=== PATIENT | female | born 1970 | race Hispanic/Latino ===

== ENCOUNTER 2022-06-09 05:48 | Emergency (ER) | payer OTHER ==
--- OUTSIDE RECORDS SUMMARY | 2022-06-09 05:53 | XMS REPORT | Continuity of Care Document ---
:1970 Author Organization [facility] t Address [address] [place] [address] Care Team Providers Name Role Phone Ciarra JEAN, Marilyn Primary Care Physician YANELI DOVER Attending Clinician Unavailable Hawkins_M Attending Clinician Unavailable May Arana MD Attending Clinician Karen Olea MA Attending Clinician Unavailable Zuniga_F Attending Clinician Unavailable matnursing Attending Clinician Unavailable Zuniga_S Attending Clinician Unavailable White_M Attending Clinician Unavailable Shield Attending Clinician Unavailable Ayeni_Ibitoye_Olubu Attending Clinician Unavailable RENALDO FONSECA Attending Clinician Unavailable Hawkins_M Admitting Clinician Unavailable Zuniga_F Admitting Clinician Unavailable matnursing Admitting Clinician Unavailable Zuniga_S Admitting Clinician Unavailable White_M Admitting Clinician Unavailable Shield Admitting Clinician Unavailable Ayeni_Ibitoye_Olubu Admitting Clinician Unavailable Payers Payer Name Policy Type Policy Number Effective Date Expiration Date Marylou LEVINE SEYMOUR [id number] 2021 HEALTH PLAN 00:00:00 BLAIR Landa [id number] ABNER FROM [facility]) ABNER Landa [id number] [facility] 3 (HMO) [place] APOLLO [id number] 2021 2021 ADVANTAGE (HMO) 00:00:00 00:00:00 Problems Condition Condition Condition Status Onset Resolution Last Treating Co mments Source Name Details Category Date Date Treatment Clinician Date Numbness Numbness Disease Active [facility] 7-06 [facility] 00:00: 00 Pain in Pain in Disease Active [facility] both feet both feet 04-03 Heal th 00:00: 00 Seasonal Seasonal Problem Active 2020-09 [place] allergy Allergy 0-21 da 00:00: Medical 00 Group COVID-19 Covid-19 Problem Active 2020-09 [place] 0-21 da 00:00: Medical 00 Group 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 Family History Family Member Diagnosis Comments Start Date Stop Date Source Maternal aunt [facility] Social History Social Habit Start Date Stop Date Quantity Comments Source History SDOH [facility] Drinks History SDAR [facility] Exposure to 2022-02-26 2022-03-08 Not sure [facility] SARS-CoV-2 00:00:00 14:35:00 (event) Tobacco use and 2022-01-23 2022-01-23 Smokeless tobacco [facility] exposure 00:00:00 00:00:00 non-user Alcohol intake 2020-03-21 2020-03-21 [facility] 00:[facility] 00:00:00 non-drinker Hospital (finding) History SDAR 2020-03-21 2020-03-21 1 [facility] Frequency 00:00:00 00:00:00 Hospita l Sex Assigned At [birth year] F [facility] 00:00:00 00:00:00 Smoking Status Start Date Stop Date Source Never smoked tobacco [facility] Medications Ordered Filled Start Stop Current Ordering Indication Dosage Frequency Signature Comments Components Source Medication Medication Date Date Medication? Clinician (SIG) Name Name cyclobenzap Yes cyclobenza [facility] rine 4-27 yaquelin 5 mg Health (Flexeril) 13:54: tablet 5 MG tablet 36 TAKE 1 TABLET BY MOUTH EVERYDAY AT BEDTIME albuterol Yes albuterol [facility] 108 (90 4-27 sulfate Health Base) 13:54: HFA 90 MCG/ACT 36 mcg/actuat inhaler ion aerosol inhaler 2 PUFF(S) INHALED EVERY 6 HOURS NEEDED FOR ASTHMA FLARES 30 DAY(S) atorvastati Yes atorvastat UT n (Lipitor) 4-27 in 20 mg Heal th 20 MG 13:54: tablet tablet 36 TAKE 1 TABLET BY MOUTH EVERY DAY azelastine Yes azelastine U T (Astelin) 4 137 mcg Health 0.1 % nasal 13:54: (0.1 %) spray [address] 2 SPRAY(S) INTRANASAL LY 2 TIMES A DAY NEEDED STOP 5 DAYS PRIOR TO ALLERGY TEST 30 DAY(S) cyclobenzap Yes cyclobenza UT rine 4-27 yaquelin 5 mg Health (Flexeril) 13:54: tablet 5 MG tablet 36 TAKE 1 TABLET BY MOUTH EVERYDAY AT BEDTIME albuterol Yes albuterol [facility] 108 (90 4-27 sulfate Health Base) 13:54: HFA 90 MCG/ACT 36 mcg/actuat inhaler ion aerosol inhaler 2 PUFF(S) INHALED EVERY 6 HOURS NEEDED FOR ASTHMA FLARES 30 DAY(S) atorvastati Yes atorvastat UT n (Lipitor) 4-27 in 20 mg [facility] th 20 MG 13:54: tablet tablet 36 TAKE 1 TABLET BY MOUTH EVERY DAY azelastine Yes azelastine U T (Astelin) 01-23 137 mcg Health 0.1 % nasal 13:54: (0.1 %) spray [address] 2 SPRAY(S) INTRANASAL LY 2 TIMES A DAY NEEDED STOP 5 DAYS PRIOR TO ALLERGY TEST 30 DAY(S) cyclobenzap Yes cyclobenza UT rine 4-27 yaquelin 5 mg Health (Flexeril) 13:54: tablet 5 MG tablet 36 TAKE 1 TABLET BY MOUTH EVERYDAY AT BEDTIME albuterol Yes albuterol [facility] 108 (90 4-27 sulfate Health Base) 13:54: HFA 90 MCG/ACT 36 mcg/actuat inhaler ion aerosol inhaler 2 PUFF(S) INHALED EVERY 6 HOURS NEEDED FOR ASTHMA FLARES 30 DAY(S) atorvastati Yes atorvastat UT n (Lipitor) 4-27 in 20 mg Heal th 20 MG 13:54: tablet tablet 36 TAKE 1 TABLET BY MOUTH EVERY DAY azelastine Yes azelastine U T (Astelin) 01-23 137 mcg Health 0.1 % nasal 13:54: (0.1 %) spray [address] 2 SPRAY(S) INTRANASAL LY 2 TIMES A DAY NEEDED STOP 5 DAYS PRIOR TO ALLERGY TEST 30 DAY(S) fexofenadin 2021- No fexofenadi UT e (Vielka) 01-23 ne 180 mg He alth 180 MG 13:53: 00:00 tablet tablet 34 :00 TAKE 1 TABLET BY MOUTH EVERY DAY hydrOXYzine 2021- No hydroxyzin UT HCl 01-23 e HCl 25 Health (Atarax) 25 13:53: 00:00 mg tablet MG tablet 34 :00 TAKE 1 TABLET BY MOUTH 3 TIMES A DAY NEEDED FOR ITCHING, MAY TRY UP TO 2 TABLETS (50 MG) amoxicillin 2021- No amoxicilli UT -clavulanat 01-23 n 875 Health e 13:53: 00:00 mg-potassi (Augmentin) 34 :00 um 875-125 MG clavulanat tablet e 125 mg tablet TAKE 1 TABLET BY MOUTH EVERY 12 HOURS FOR 10 DAYS azelastine 2021- No azelastine UT (Optivar) 01-23 0.05 % eye Hea lth 0.05 % 13:53: 00:00 drops ophthalmic 34 :00 INSTILL 1 solution DROP INTO AFFECTED EYE(S) BY OPHTHALMIC ROUTE 2 TIMES PER DAY diclofenac Yes diclofenac U T (Voltaren) 01-23 sodium 75 Heal th 75 MG EC 13:53: mg tablet 32 tablet,del ayed release TAKE 1 TABLET BY MOUTH TWICE A DAY NEEDED levothyroxi Yes 1{capsu QD 1 capsule UT ne 01-23 le} 1 (one) [facility] (Tirosint) 13:53: time each 100 MCG 32 day. capsule diclofenac Yes diclofenac U T (Voltaren) 01-23 sodium 75 Heal th 75 MG EC 13:53: mg tablet 32 tablet,del ayed release TAKE 1 TABLET BY MOUTH TWICE A DAY NEEDED levothyroxi Yes 1{capsu QD 1 capsule UT ne 01-23 le} 1 (one) Health (Tirosint) 13:53: time each 100 MCG 32 day. capsule diclofenac Yes diclofenac U T (Voltaren) 27 sodium 75 Heal th 75 MG EC 13:53: mg tablet 32 tablet,del ayed release TAKE 1 TABLET BY MOUTH TWICE A DAY NEEDED levothyroxi 0 Yes 1{capsu QD 1 capsule UT ne 01-23 le} 1 (one) Health (Tirosint) 13:53: time each 100 MCG 32 day. capsule Atorvastati Yes atorvastat UT n Calcium 4-27 in Health (LIPITOR 13:53: PO) 31 cetirizine Yes cetirizine U T (ZyrTEC) 10 4-27 10 mg Health MG tablet 13:53: tablet 31 TAKE 1 TABLET EVERY DAY BY ORAL ROUTE FOR 30 DAYS. Atorvastati Yes atorvastat UT n Calcium 4-27 in Health (LIPITOR 13:53: PO) 31 cetirizine Yes cetirizine U T (ZyrTEC) 10 4-27 10 mg Health MG tablet 13:53: tablet 31 TAKE 1 TABLET EVERY DAY BY ORAL ROUTE FOR 30 DAYS. Atorvastati Yes atorvastat UT n Calcium 4-27 in Health (LIPITOR 13:53: PO) 31 cetirizine 0 Yes cetirizine U T (ZyrTEC) 10 4-27 10 mg Health MG tablet 13:53: tablet 31 TAKE 1 TABLET EVERY DAY BY ORAL ROUTE FOR 30 DAYS. levothyroxi Yes UT ne 4-16 Health (Synthroid, 00:00: Levoxyl) 00 100 MCG tablet levothyroxi 0 Yes UT ne 4-16 Health (Synthroid, 00:00: Levoxyl) 00 100 MCG tablet levothyroxi 0 Yes UT ne 4-16 Health (Synthroid, 00:00: Levoxyl) 00 100 MCG tablet cetirizine 0 Yes 10mg QD Take 10 mg U T (ZyrTEC) 10 4-09 by mouth 1 He alth MG tablet 00:00: (one) time 00 each day. cetirizine 2022-0 Yes 10mg QD Take 10 mg U T (ZyrTEC) 10 4-09 by mouth 1 He alth MG tablet 00:00: (one) time 00 each day. cetirizine 2022-0 Yes 10mg QD Take 10 mg U T (ZyrTEC) 10 4-09 by mouth 1 He alth MG tablet 00:00: (one) time 00 each day. diclofenac 2022-0 Yes 75mg Q.5D Take 75 mg U T (Voltaren) 3-28 by mouth 2 Hea lth 75 MG EC 00:00: (two) tablet 00 times a day if needed. diclofenac 2022-0 Yes 75mg Q.5D Take 75 mg U T (Voltaren) 3-28 by mouth 2 Hea lth 75 MG EC 00:00: (two) tablet 00 times a day if needed. diclofenac 2022-0 Yes 75mg Q.5D Take 75 mg U T (Voltaren) 3-28 by mouth 2 Hea lth 75 MG EC 00:00: (two) tablet 00 times a day if needed. cyclobenzap 2022-0 Yes 5mg Take 5 mg U T rine 3-10 by mouth Health (Flexeril) 00:00: every 5 MG tablet 00 night. cyclobenzap 2022-0 Yes 5mg Take 5 mg U T rine 3-10 by mouth Health (Flexeril) 00:00: every 5 MG tablet 00 night. cyclobenzap 2022-0 Yes 5mg Take 5 mg U T rine 3-10 by mouth Health (Flexeril) 00:00: every 5 MG tablet 00 night. famotidine 2020-0 Yes famotidine U T (Pepcid) 20 8-02 20 mg Health MG tablet 00:00: tablet 1 00 TAB(S) ORALLY 2 TIMES A DAY TO ADD ON DURING WORSE HIVES 30 DAYS famotidine 2020-0 Yes famotidine U T (Pepcid) 20 8-02 20 mg Health MG tablet 00:00: tablet 1 00 TAB(S) ORALLY 2 TIMES A DAY TO ADD ON DURING WORSE HIVES 30 DAYS famotidine 2020-0 Yes famotidine U T (Pepcid) 20 8-02 20 mg Health MG tablet 00:00: tablet 1 00 TAB(S) ORALLY 2 TIMES A DAY TO ADD ON DURING WORSE HIVES 30 DAYS levocetiriz 2020-0 2021- No levocetiri UT ine (Xyzal) 04-3027 zine 5 mg He alth 5 MG tablet 00:00: 00:00 tablet 00 :00 Take by oral route for 30 days. montelukast Yes montelukas UT (Singulair) 7-06 t 10 mg Healt h 10 MG 00:00: tablet tablet 00 TAKE 1 TABLET BY MOUTH EVERY DAY FOR 30 DAYS montelukast Yes montelukas UT (Singulair) 7-06 t 10 mg Healt h 10 MG 00:00: tablet tablet 00 TAKE 1 TABLET BY MOUTH EVERY DAY FOR 30 DAYS montelukast Yes montelukas UT (Singulair) 7-06 t 10 mg Healt h 10 MG 00:00: tablet tablet 00 TAKE 1 TABLET BY MOUTH EVERY DAY FOR 30 DAYS cyanocobala 2020-0 Yes 1000ug QD Take 1,000 [facility] min 6-[address] (VITAMIN 13:47: mouth Hospita B-12) 1000 59 daily. l MCG tablet cyanocobala 2020-0 Yes 1000ug QD Take 1,000 [facility] min 6-[address] (VITAMIN 13:47: mouth Hospita B-12) 1000 59 daily. l MCG tablet levocetiriz 2020-0 Yes Method i ine 6-23 st (Allergy 13:47: Hospita Relief, 45 l levocetiriz in,) 5 MG tablet levothyroxi 2020-0 Yes Method i ne sodium 6-23 st (TIROSINT) 13:47: Hospita 100 mcg 45 l capsule levocetiriz 2020-0 Yes Method i ine 6-23 st (Allergy 13:47: Hospita Relief, 45 l levocetiriz in,) 5 MG tablet levothyroxi 2020-0 Yes Method i ne sodium 6-23 st (TIROSINT) 13:47: Hospita 100 mcg 45 l capsule atorvastati 2020-0 Yes TAKE 1 Meth mary grace n (LIPITOR) 5-[address] 20 mg 00:00: MOUTH ONCE Hospit a tablet 00 DAILY IN l THE EVENING WITH SUPPER atorvastati 2020-0 Yes TAKE 1 Meth mary grace n (LIPITOR) 5-[address] 20 mg 00:00: MOUTH ONCE Hospit a tablet 00 DAILY IN l THE EVENING WITH SUPPER albuterol albuterol No albuterol [place] sulfate HFA sulfate HFA sulfate da 90 90 HFA 90 Medical mcg/actuati mcg/actuati mcg/actuat Group on aerosol on aerosol ion inhaler 2 inhaler 2 aerosol PUFF(S) PUFF(S) inhaler 2 INHALED INHALED PUFF(S) EVERY 6 EVERY 6 INHALED HOURS HOURS EVERY 6 NEEDED FOR NEEDED FOR HOURS ASTHMA ASTHMA NEEDED FOR FLARES 30 FLARES 30 ASTHMA DAY(S) DAY(S) FLARES 30 DAY(S) atorvastati atorvastati No atorvastat [place] n 20 mg n 20 mg in 20 mg da tablet TAKE tablet TAKE tablet Medical 1 TABLET BY 1 TABLET BY TAKE 1 Group MOUTH EVERY MOUTH EVERY TABLET BY DAY DAY MOUTH EVERY DAY azelastine azelastine No azelastine [place] 0.05 % eye 0.05 % eye 0.05 % eye da drops drops drops Medical INSTILL 1 INSTILL 1 INSTILL 1 Group DROP INTO DROP INTO DROP INTO AFFECTED AFFECTED AFFECTED EYE TWICE A EYE TWICE A EYE TWICE DAY DAY A DAY cetirizine cetirizine No cetirizine [place] 10 mg 10 mg 10 mg da tablet TAKE tablet TAKE tablet Medical 1 TABLET BY 1 TABLET BY TAKE 1 Group MOUTH EVERY MOUTH EVERY TABLET BY DAY DAY MOUTH EVERY DAY cyclobenzap cyclobenzap No cyclobenza [place] rine 5 mg rine 5 mg yaquelin 5 mg da tablet TAKE tablet TAKE tablet Medical 1 TABLET BY 1 TABLET BY TAKE 1 Group MOUTH MOUTH TABLET BY EVERYDAY AT EVERYDAY AT MOUTH BEDTIME BEDTIME EVERYDAY AT BEDTIME diclofenac diclofenac No diclofenac [place] sodium 75 sodium 75 sodium 75 da mg mg mg Medical tablet,mina tablet,mina tablet,del Group yed release yed release ayed TAKE 1 TAKE 1 release TABLET BY TABLET BY TAKE 1 MOUTH TWICE MOUTH TWICE TABLET BY A DAY A DAY MOUTH NEEDED NEEDED TWICE A DAY NEEDED famotidine famotidine No famotidine [place] 20 mg 20 mg 20 mg da tablet 1 tablet 1 tablet 1 Med ical TAB(S) TAB(S) TAB(S) Group ORALLY 2 ORALLY 2 ORALLY 2 TIMES A DAY TIMES A DAY TIMES A TO ADD ON TO ADD ON DAY TO ADD DURING DURING ON DURING WORSE HIVES WORSE HIVES WORSE 30 DAYS 30 DAYS HIVES 30 DAYS gabapentin gabapentin No gabapentin [place] 300 mg 300 mg 300 mg da capsule capsule capsule Medica l TAKE 1 TAKE 1 TAKE 1 Group CAPSULE BY CAPSULE BY CAPSULE BY MOUTH THREE MOUTH THREE MOUTH TIMES A DAY TIMES A DAY THREE TIMES A DAY hydroxyzine hydroxyzine No hydroxyzin [place] HCl 25 mg HCl 25 mg e HCl 25 d a tablet TAKE tablet TAKE mg tablet Medical 1 TABLET BY 1 TABLET BY TAKE 1 Group MOUTH EVERY MOUTH EVERY TABLET BY DAY DAY MOUTH EVERY DAY levothyroxi levothyroxi No levothyrox [place] ne 100 mcg ne 100 mcg ine 100 da tablet TAKE tablet TAKE mcg tablet Medical 1 TABLET BY 1 TABLET BY TAKE 1 Group MOUTH EVERY MOUTH EVERY TABLET BY DAY DAY MOUTH EVERY DAY montelukast montelukast No montelukas [place] 10 mg 10 mg t 10 mg da tablet TAKE tablet TAKE tablet Medical 1 TABLET BY 1 TABLET BY TAKE 1 Group MOUTH EVERY MOUTH EVERY TABLET BY DAY FOR 30 DAY FOR 30 MOUTH DAYS DAYS EVERY DAY FOR 30 DAYS atorvastati atorvastati No atorvastat [place] [facility] n [facility] atorvastati atorvastati No atorvastat [place] n 20 mg n 20 mg in 20 mg da tablet TAKE tablet TAKE tablet [facility] 1 TABLET BY 1 TABLET BY TAKE 1 al MOUTH ONCE MOUTH ONCE TABLET BY Health DAILY IN DAILY IN MOUTH ONCE O utreac THE EVENING THE EVENING DAILY IN h WITH SUPPER WITH SUPPER THE P rogram EVENING WITH SUPPER calcium calcium No calcium [facility] [facility] Euthyrox Euthyrox No Euthyrox [facility] 100 mcg 100 mcg 100 mcg da tablet TAKE tablet TAKE tablet [facility] 1 TABLET BY 1 TABLET BY TAKE 1 al MOUTH ONCE MOUTH ONCE TABLET BY Health DAILY DAILY MOUTH ONCE Outreac DAILY h Program fluconazole fluconazole No fluconazol [place] 150 mg 150 mg e 150 mg da tablet TAKE tablet TAKE tablet [facility] 1 TABLET BY 1 TABLET BY TAKE 1 al MOUTH ONCE MOUTH ONCE TABLET BY Health A WEEK A WEEK MOUTH ONCE Outre ac A WEEK h Program levothyroxi levothyroxi No 1capsul Q1D levothyrox [place] ne 100 mcg ne 100 mcg e(s) ine 100 da capsule capsule mcg [facility] Take 1 Take 1 capsule al capsule capsule Take 1 Health every day every day capsule Ou treac by oral by oral every day h route. route. by oral Program route. metronidazo metronidazo No metronidaz [place] le 500 mg le 500 mg ole 500 mg da tablet TAKE tablet TAKE tablet [facility] 1 TABLET BY 1 TABLET BY TAKE 1 al MOUTH TWICE MOUTH TWICE TABLET BY Health DAILY FOR 7 DAILY FOR 7 MOUTH Outreac DAYS DAYS TWICE h DAILY FOR Program 7 DAYS Immunizations Ordered Immunization Filled Immunization Date Status Commen ts Source Name Name COVID-19, mRNA, COVID-19, mRNA, 2021-11-12 Completed Wero calvo LNP-S, PF, 30 LNP-S, PF, 30 00:00:00 Medical Group mcg/0.3 mL dose, mcg/0.3 mL dose, sonu-sucrose sonu-sucrose ([place]) ([place]) Hep B, adult Hep B, adult 2020-07-31 Completed [facility] 14:40:32 [facility] Hep B, adult Hep B, adult 2020-04-17 Completed [facility] 15:47:52 [facility] Vital Signs Vital Name Observation Time Observation Value Comments Source Systolic blood 2022-01-23 18:48:00 137 mm[Hg] [facility] pressure Diastolic blood 2022-01-23 18:48:00 87 mm[Hg] [facility] pressure Heart rate 2022-01-23 18:48:00 76 /min [facility] Body height 2022-01-23 18:48:00 162.6 cm [facility] Body weight 2022-01-23 18:48:00 77.111 kg [facility] BMI 2022-01-23 18:48:00 29.18 kg/m2 [facility] BP Diastolic 2022-06-05 00:00:00 72 mm[Hg] [facility] Height 2022-06-05 00:00:00 60 [in_i] [facility] BMI (Body Mass 2022-06-05 00:00:00 36.1 kg/m2 [facility] [employer] [facility] Index) Group BP Systolic 2022-06-05 00:00:00 128 mm[Hg] [facility] Body Weight 2022-06-05 00:00:00 2960 [oz_av] [facility] BP Diastolic 2022-04-30 00:00:00 78 mm[Hg] [facility] Height 2022-04-30 00:00:00 60 [in_i] [facility] BMI (Body Mass 2022-04-30 00:00:00 36.1 kg/m2 [facility] Index) Group BP Systolic 2022-04-30 00:00:00 134 mm[Hg] [facility] Body Weight 2022-04-30 00:00:00 2960 [oz_av] [facility] Height 2022-04-02 00:00:00 60 [in_i] [facility] Height 2022-02-27 00:00:00 60 [in_i] [facility] Height 2022-02-14 00:00:00 60 [in_i] [facility] BMI (Body Mass 2022-02-14 00:00:00 36.1 kg/m2 [facility] Index) Group Body Weight 2022-02-14 00:00:00 2960 [oz_av] [facility] Height 2022-02-13 00:00:00 60 [in_i] [facility] Height 2022-02-06 00:00:00 60 [in_i] [facility] BP Diastolic 2022-01-29 00:00:00 80 mm[Hg] [facility] Height 2022-01-29 00:00:00 60 [in_i] [facility] BMI (Body Mass 2022-01-29 00:00:00 36.1 kg/m2 [facility] Index) Group BP Systolic 2022-01-29 00:00:00 121 mm[Hg] [facility] Body Weight 2022-01-29 00:00:00 2960 [oz_av] [facility] Systolic blood 2022-01-23 18:48:00 137 mm[Hg] [facility] Diastolic blood 2022-01-23 18:48:00 87 mm[Hg] [facility] pressure Heart rate 2022-01-23 18:48:00 76 /min [facility] Body height 2022-01-23 18:48:00 162.6 cm [facility] Body weight 2022-01-23 18:48:00 77.111 kg [facility] BMI 2022-01-23 18:48:00 29.18 kg/m2 [facility] Height 2022-01-16 00:00:00 60 [in_i] [facility] Height 2022-01-02 00:00:00 60 [in_i] [facility] Height 2021-12-19 00:00:00 60 [in_i] [facility] Height 2021-12-05 00:00:00 60 [in_i] [facility] Height 2021-11-28 00:00:00 60 [in_i] [facility] Height 2021-11-21 00:00:00 60 [in_i] [facility] Height 2021-11-14 00:00:00 60 [in_i] [facility] Height 2021-11-07 00:00:00 60 [in_i] [facility] Height 2021-10-24 00:00:00 60 [in_i] [facility] Height 2021-10-10 00:00:00 60 [in_i] [facility] Height 2021-10-03 00:00:00 60 [in_i] [facility] Height 2021-09-25 00:00:00 60 [in_i] [facility] Height 2021-09-12 00:00:00 60 [in_i] [facility] Height 2021-09-04 00:00:00 60 [in_i] [facility] Height 2021-08-27 00:00:00 60 [in_i] [facility] Height 2021-08-16 00:00:00 60 [in_i] [facility] Height 2021-08-02 00:00:00 60 [in_i] [facility] Height 2021-07-27 00:00:00 60 [in_i] [facility] BP Diastolic 2021-07-19 00:00:00 82 mm[Hg] [facility] Height 2021-07-19 00:00:00 60 [in_i] [facility] BMI (Body Mass 2021-07-19 00:00:00 34.8 kg/m2 [facility] Index) Group BP Systolic 2021-07-19 00:00:00 145 mm[Hg] [facility] Body Weight 2021-07-19 00:00:00 2848 [oz_av] [facility] BP Diastolic 2021-07-12 00:00:00 78 mm[Hg] [facility] Height 2021-07-12 00:00:00 60 [in_i] [facility] BMI (Body Mass 2021-07-12 00:00:00 34.8 kg/m2 [facility] Index) Group BP Systolic 2021-07-12 00:00:00 120 mm[Hg] [facility] Body Weight 2021-07-12 00:00:00 2848 [oz_av] [facility] Height 2021-07-05 00:00:00 60 [in_i] [facility] Height 2021-06-21 00:00:00 60 [in_i] [facility] Height 2021-06-14 00:00:00 60 [in_i] [facility] BP Diastolic 2021-06-06 00:00:00 69 mm[Hg] [facility] Height 2021-06-06 00:00:00 60 [in_i] [facility] BMI (Body Mass 2021-06-06 00:00:00 34.6 kg/m2 [facility]) Group BP Systolic 2021-06-06 00:00:00 110 mm[Hg] [facility] Body Weight 2021-06-06 00:00:00 2834 [oz_av] [facility] Height 2021-05-31 00:00:00 60 [in_i] [facility] BP Diastolic 2021-05-31 00:00:00 75 mm[Hg] [facility] BMI (Body Mass 2021-05-31 00:00:00 34.5 kg/m2 [facility]) Group BP Systolic 2021-05-31 00:00:00 118 mm[Hg] [facility] Body Weight 2021-05-31 00:00:00 2824 [oz_av] [facility] Height 2021-05-24 00:00:00 60 [in_i] [facility] BP Diastolic 2021-04-24 00:00:00 81 mm[Hg] [facility] Height 2021-04-24 00:00:00 60 [in_i] [facility] BMI (Body Mass 2021-04-24 00:00:00 32.9 kg/m2 [facility]) Group BP Systolic 2021-04-24 00:00:00 126 mm[Hg] [facility] Body Weight 2021-04-24 00:00:00 2697 [oz_av] [facility] BP Diastolic 2021-04-03 00:00:00 76 mm[Hg] [facility] Height 2021-04-03 00:00:00 60 [in_i] [facility] BMI (Body Mass 2021-04-03 00:00:00 33 kg/m2 [facility]) Group BP Systolic 2021-04-03 00:00:00 111 mm[Hg] [facility] Body Weight 2021-04-03 00:00:00 2704 [oz_av] [facility] BP Diastolic 2021-03-29 00:00:00 71 mm[Hg] [facility] Height 2021-03-29 00:00:00 60 [in_i] [facility] BMI (Body Mass 2021-03-29 00:00:00 31.6 kg/m2 [facility]) Group BP Systolic 2021-03-29 00:00:00 109 mm[Hg] [facility] Body Weight 2021-03-29 00:00:00 162 [lb_av] [facility] BP Diastolic 2021-03-20 00:00:00 75 mm[Hg] [facility] Height 2021-03-20 00:00:00 60 [in_i] [facility] BMI (Body Mass 2021-03-20 00:00:00 31.2 kg/m2 [facility]) Group BP Systolic 2021-03-20 00:00:00 119 mm[Hg] [facility] Body Weight 2021-03-20 00:00:00 2560 [oz_av] [facility] Procedures Procedure Date / Time Performed Performing Clinician Sour e VITAMIN B12 AND FOLATE 2022-01-23 19:42:00 Yaneli [place] [facility] PANEL, SERUM XR, lumbar spine 2021-06-06 00:00:00 [facility] XR, hand, 3 or more 2021-06-06 00:00:00 [facility] Medical view Group MAMMO, screening, 2021-03-29 00:00:00 [facility] bilateral Group MAMMO, screening, 2021-03-20 00:00:00 [facility] digital, bilateral Group Delivery [facility] Plan of Care Planned Activity Planned Date Details Comments Source Future Scheduled 2022-05-31 HEPATITIS B VACCINES [facility] Test 13:36:37 (1 of 3 - 3-dose series) [code = HEPATITIS B VACCINES (1 of 3 - 3-dose series)] Future Scheduled 2022-05-31 COVID-19 VACCINE (#1) [facility] Test 13:36:37 [code = COVID-19 VACCINE (#1)] Future Scheduled 2022-05-31 Hepatitis C screening [facility] Test 13:36:37 (procedure) [code = [id number]] Future Scheduled 2022-05-31 Screening for [facility] Test 13:36:37 malignant neoplasm of cervix (procedure) [code = [id number]] Future Scheduled 2022-05-31 BREAST CANCER [facility] Test 13:36:37 SCREENING [code = BREAST CANCER SCREENING] Future Scheduled 2022-05-31 COLONOSCOPY SCREENING [facility] Test 13:36:37 [code = COLONOSCOPY SCREENING] Future Scheduled 2022-05-31 SHINGLES VACCINES (1 [facility] Test 13:36:37 of 2) [code = SHINGLES VACCINES (1 of 2)] Future Scheduled 2022-05-31 INFLUENZA [facility]ACCINE [facility] Test 13:36:37 [code = INFLUENZA VACCINE] Future Scheduled 2021-10-31 Hepatitis C screening [facility] Test 12:20:45 (procedure) [code = 017475811] Future Scheduled 2021-10-31 Screening for [facility] Test 12:20:45 malignant neoplasm of cervix (procedure) [code = 151094803] Future Scheduled 2021-10-31 BREAST CANCER [facility] Test 12:20:45 SCREENING [code = BREAST CANCER SCREENING] Future Scheduled 2021-10-31 COLONOSCOPY SCREENING [facility] Test 12:20:45 [code = COLONOSCOPY SCREENING] Future Scheduled 2021-10-31 SHINGLES VACCINES [facility] Test 12:20:45 (#1) [code = SHINGLES VACCINES (#1)] Future Scheduled 2021-10-31 INFLUENZA VACCINE [facility] Test 12:20:45 [code = INFLUENZA VACCINE] Future Scheduled 2021-10-31 COVID-19 VACCINE (1) [facility] Test 12:20:45 [code = COVID-19 VACCINE (1)] Encounters Start End Encounter Admission Attending Care Care Encounter Source Date/Time Date/Time Type Type Clinicians Facility Department ID 2021-11-20 Outpatient [facility] [id number] [place] 17:02:05 [facility] 2022-06-05 2022-06-05 Outpatient VenuM [facility] [id number] -2021 [place] 00:00:00 00:00:00 0907 [facility] 2022-06-05 2022-06-05 Arslan [facility] [place] - [id number] [place] 00:00:00 00:00:00 José Miguel Denise MD: [address] [facility] [address], [place] [address] , Ph. 2022-04-30 2022-04-30 Arslan LeaM [facility] [place] - [id number] 022 [place] 00:00:00 00:00:00 Krystian Stovall 0802 José Miguel Sabillon Medical MD: [address] [facility] [address], [place] [address] , Ph. 2022-04-17 2022-04-17 Telephone JAMMIE Arana 6400 [id number] [place] 00:00:00 00:00:[address] [id number] Health [place] [id number] 2022-04-05 2022-04-05 Telephone Karen Olea [facility] [id number] [place] 00:00:00 00:00:00 Karen Olea [place] [id number] Health [place] [id number] 2022-04-02 2022-04-02 Arslan Mcnamara_M [facility] [place] - [id number] 022 [place] 00:00:00 00:00:00 Krystian Stovall 0705 José Miguel Sabillon Medical MD: [address] [facility] [address], [place] [address] , Ph. 2022-03-04 2022-03-04 Outpatient Naima_M [facility] [id number] -2021 [place] 01:09:00 01:09:00 0606 shyann [facility] 2022-02-27 2022-02-27 Arslan Naima_M [facility] [place] - [id number] 022 [place] 00:00:00 00:00:00 Krystian Stovall 0601 José Miguel Sabillon MD: [address] [facility] [address], [place] [address] , Ph. 2022-02-14 2022-02-14 Arslan Mcnamara_M [facility] [place] - [id number] 022 [place] 00:00:00 00:00:00 Krystian Stovall 0519 José Miguel Sabillon MD: [address] [facility] [address], [place] [address] , Ph. 2022-02-13 2022-02-13 Arslan Mcnamara_M [facility] [place] [place] - [id number] 022 [place] 00:00:00 00:00:00 Krystian Stovall 0518 shyann Bruno Medical Medical MD: [address] [place] [address], [place] [address] , Ph. 2022-02-10 2022-02-10 Outpatient Naima_Renetta [facility] [id number] [place] 02:11:00 02:11:00 0515 [facility] 2022-02-06 2022-02-06 Chikis Mcnamara_Renetta [facility] [place] [place] - [address]53 22 [place] 00:00:00 00:00:00 Miladis Stovall 0511 shyann Mcnamara Medical Medical PRISM MEASURER: [address] [place] [address], [place] [address] , Ph. 2022-01-29 2022-01-29 Chikis Zamudio [facility] [place] - [address]-03 22 [place] 00:00:00 00:00:00 Miladis Stovall 0503 shyann Mcnamara Medical Medical PRISM MEASURER: [address] [place] [address], [place] [address] , Ph. 2022-01-23 2022-01-23 [facility] [id number] [place] 13:30:00 14:32:03 [facility] [id number] [facility] [id number] [address] [id number] 2022-01-16 2022-01-16 Arslan Bruno_F [facility] [place] [place] - [id number] 22 [place] 00:00:00 00:00:00 Krystian Stovall 0420 shyann Bruno Medical Medical MD: [address] [place] [address], [place] [address] , Ph. 2022-01-06 2022-01-06 Outpatient Zuniga_F MMG [facility] [id number]- 2021 [place] 01:14:00 01:14:00 0410 Medical Group 2022-01-02 2022-01-02 [place] Z[place] - [address]-65 22 [place] 00:00:00 00:00:00 Krystian Stovall 0406 José Miguel Sabillon MD: [address] [place] [address] 201, [place] [address] , Ph. 2021-12-19 2021-12-19 Arslan Constanzauniga_F [facility] [place] - [address]-59 22 [place] 00:00:00 00:00:00 Krystian Stovall 0323 José Miguel Sabillon Medical MD: [address] [place] [address] 201, [place] [address] , Ph. 2021-12-05 2021-12-05 Arslan Apodacauniga_F [facility] [place] [place] - [id number] 22 [place] 00:00:00 00:00:00 Krystian Stovall 0309 José Miguel Sabillon MD: [address] [place] [address], [place] [address] , Ph. 2021-11-28 2021-11-28 Arslan Yehiga_F [facility] [place] - [address]-68 22 [place] 00:00:00 00:00:00 Krystian Stovall 0302 José Miguel Sabillon MD: [address] [place] [address] 201, [place] [address] , Ph. 2021-11-21 2021-11-21 Arslan woodard [facility] [place] [place] - [address]- 2021 [place] 00:00:00 00:00:00 Krystian Stovall 0223 JoséM iguel Sabillon MD: [address] [place] [address] 201, [place] [address] , Ph. 2021-11-14 2021-11-14 Arslan woodard [facility] [place] [place] - [address]- 2021 [place] 00:00:00 00:00:00 Krystian Stovall 0216 José Miguel Sabillon Medical MD: [address] [place] [address] 201, [place] [address] , Ph. 2021-11-07 2021-11-07 Arslan woodard [facility] [place] [place] - [address]- 2021 [place] 00:00:00 00:00:00 Krystian Stovall 0209 José Miguel Sabillon Medical MD: [address] [place] [address] 201, [place] [address] , Ph. 2021-10-31 2021-10-31 Arslan woodard [facility] [place] [place] - [address]- 2021 [place] 00:00:00 00:00:00 Krystian Stovall 0202 José Miguel Sabillon MD: [address] [place] [address] 201, [place] [address] , Ph. 2021-10-24 2021-10-24 Arslan woodard [facility] [place] [place] - [address]- 2021 [place] 00:00:00 00:00:00 Krystian Stovall 0126 José Miguel Sabillon MD: [address] [place] [address] 201, [place] [address] , Ph. 2021-10-10 2021-10-10 Arslan woodard [facility] [place] [place] - [address]- 2021 [place] 00:00:00 00:00:00 Krystian Stovall 0112 José Miguel Sabillon MD: [address] [place] [address] 201, [place] [address] , Ph. 2021-10-04 2021-10-04 [facility] [id number] [place] 10:26:00 10:26:00 010Daniele [facility] 2021-10-03 2021-10-03 Arslan torresing [facility] [place] [place] - [address]- 2021 [place] 00:00:00 00:00:00 Krystian Stovall 0105 José Miguel Sabillon MD: [address] [place] [address] 201, [place] [address] , Ph. 2021-09-25 2021-09-25 Arslan vance [facility] [place] [place] - [address]- 2020 [place] 00:00:00 00:00:00 Krystian Stovall 1228 José Miguel Sabillon MD: [address] [place] [address] 201, [place] [address] , Ph. 2021-09-12 2021-09-12 Arslan woodard [facility] [place] [place] - [address]- 2020 [place] 00:00:00 00:00:00 Krystian Stovall 1215 José Miguel Sabillon MD: [address] [place] [address] 201, [place] [address] , Ph. 2021-09-07 2021-09-07 Outpatient Zuniga_S [facility] [address]- 2020 [place] 11:54:00 11:54:00 1210 [facility] 2021-09-04 2021-09-04 Arslan Zuniga_S [facility] [place] - [address]-64 21 [place] 00:00:00 00:00:00 Krystian Stovall 1207 José Miguel Sabillon MD: [address] [place] [address] 201, [place] [address] , Ph. 2021-08-27 2021-08-27 Arslan Apodacauniga_S [facility] [place] [place] - [address]-89 21 [place] 00:00:00 00:00:00 Krystian Stovall 1129 José Miguel Sabillon MD: [address] [place] [address] 201, [place] [address] , Ph. 2021-08-16 2021-08-16 Ar[place] Raoiga_[place] - [address]-55 21 [place] 00:00:00 00:00:00 Krystian Stovall 1118 José Miguel Sabillon Medical MD: [address] [place] [address], [place] [address] , Ph. 2021-08-02 2021-08-02 [place] James[place] - [address]-49 21 [place] 00:00:00 00:00:00 Krystian Stovall 1104 José Miguel Sabillon Medical MD: [address] [place] [address], [place] [address] , Ph. 2021-07-27 2021-07-27 [place] - [address]-54 21 [place] 00:00:00 00:00:00 Krystian Stovall 1029 José Miguel Sabillon Medical MD: [address] [place] [address], [place] [address] , Ph. 2021-07-19 2021-07-19 [place] - [address]-3 021 [place] 00:00:00 00:00:00 Discovery Jose Bruno da HEALTH AND WELLNESS COACH-C: [address] [place] [address] , Ph. 2021-07-12 2021-07-12 Ar[place] Z[place]essiga_[place] - [address]-82 21 [place] 00:00:00 00:00:00 Krystian Stovall 1014 José Miguel Sabillon Medical MD: [address] [place] [address], [place] [address] , Ph. 2021-07-05 2021-07-05 Arslan Constanzauniga_[place] - [address]-07 21 [place] 00:00:00 00:00:00 Krystian Stovall 1007 shyann Bruno Medical Medical MD: [address] [place] [address], [place] [address] , Ph. 2021-06-21 2021-06-21 Arslan Ap[place]aca[place] - [address]-94 21 [place] 00:00:00 00:00:00 Krystian Stovall 0923 shyann Bruno Medical Medical MD: [address] [place] [address], [place] [address] , Ph. 2021-06-14 2021-06-14 [place] - [address]-47 21 [place] 00:00:00 00:00:00 Krystian Stovall 0916 José Miguel Sabillon MD: [address] [place] [address], [place] [address] , Ph. 2021-06-06 2021-06-06 [place] Y[place] - [address]-11 21 [place] 00:00:00 00:00:00 Krystian Stovall 0908 José Miguel Sabillon MD: [address] [place] [address], [place] [address] , Ph. 2021-05-31 2021-05-31 Arsl[place] - [address]-30 21 [place] 00:00:00 00:00:00 Krystian Stovall 0902 José Miguel Sabillon MD: [address] [place] [address], [place] [address] , Ph. 2021-05-24 2021-05-24 [place] - [address]- 2020 [place] 00:00:00 00:00:00 Krystian Stovall 0826 José Miguel Sabillon Medical MD: [address] [place] [address] 201, [place] [address] , Ph. 2021-05-23 2021-05-23 Outpatient matnursing [facility] [id number] [place] 09:25:00 09:25:00 0825 shyann [facility] 2021-04-24 2021-04-24 Arslan Zuniga_F [facility] [place] [place] - [address]-54 [place] 00:00:00 00:00:00 Krystian Stovall 0727 José Miguel Sabillon Medical MD: [address] [place] [address] 201, [place] [address] , Ph. 2021-04-03 2021-04-03 Chikis Robb [facility] [place] - [address]-18 [place] 00:00:00 00:00:00 Miladis Stovall 0706 José Miguel Martinez PRISM MEASURER: [address] [place] [address], [place] [address] , Ph. 2021-03-29 2021-03-29 Christine Reis [facility] [place] [place] - [address] [place] 00:00:00 00:00:00 Discovery Lanette 0701 da [facility]-: [address] OBGYN [address] [address] , Ph. [phone] 2021-03-20 2021-03-20 Darling Turner [facility] [place] [place] - [address] [place] 00:00:00 00:00:00 Discovery Johnny 0622 shyann PRISM MEASURER: [address] [place] [address] , Ph. 2021-03-19 2021-03-19 Outpatient Zuniga_F [facility] [id number]- 2020 [place] 03:50:00 03:50:00 0621 da Medical Group 2021-03-06 2021-03-06 Outpatient Ayeni_Ibito [facility] 782 [place] 03:06:00 03:06:00 Katerina 0608 [facility] 2020-10-17 2020-10-17 Outpatient Ayeni_Ibito [facility] 782 [place] 03:58:00 03:58:00 Katerina 0119 [facility] 2020-07-31 2020-07-31 Steffi Ayeni_Ibito [facility] [id number] [place] 00:00:00 00:00:00 Katerina Johnson 1102 shyann MD: 1700 Hinduism Ep[facility] - [facility] [address], [facility] [address] h , Ph. Program 2020-05-30 2020-05-30 Steffi Ayeni_Ibito [facility] [id number] [place] 00:00:00 00:00:00 Katerina Johnson 0901 shyann MD: 1700 Hinduism [facility] [address] [place] [address] h , Ph. Program 2020-04-19 2020-04-19 Outpatient Ayeni_Ibito [facility] [place] [address] [place] 10:24:00 10:24:00 Katerina 0722 [facility] 2020-04-17 2020-04-17 Steffi Ayeni_Ibito [facility] [id number] [place] 00:00:00 00:00:00 Katerina Johnson 0720 shyann MD: 1700 Hinduism Episc op [place] [facility] - [facility] [address], [facility] [address] h , Ph. Program 2020-03-21 2020-03-21 Outpatient RAYMUNDO [facility] [id number] [place] 00:00:00 00:00:00 RENALDO [address] 2020-03-16 2020-03-16 Outpatient Ayeni_Ibito [facility] 782 [place] 03:31:00 03:31:00 Heidiu 18 [facility] 2020-03-10 2020-03-10 Outpatient Ayeni_Ibito [facility] 782 [place] 05:34:00 05:34:00 ye_Hodau 611 da [facility] Results Test Description Test Time Test Comments Results Result Comments Source VITAMIN B12 AND FOLATE PANEL, SERUM 2022-01-24 05:00:00 Test Item Value Reference Range Interpretation Comme nts VITAMIN B12 (test code 534 pg/mL 200-1100 = 2132-9) FOLATE, SERUM (test 19.3 ng/mL ? code = 2284-8) ? Reference R ilana ? Low: ? <3.4 ? Borderline: ? ? 3.4-5.4 ? Normal: ? >5.4 RAC (test code = RAC) Performing Organization Information: ? ?Site ID: [id number] ? ?Name: [employer] [place] ? ?Address: [address] [place] [address] ? ?Director: DEJAH SANCHES MD [facility]-CoV+SARS-CoV-2 (COVID-19) Ag [Presence] in Respiratory specimen by Rapid [id number] 14:42:10 Test Item Value Reference Range Interpretation Comments SARS-CoV - 2 (test code = SARS-CoV - negative 2) [facility] Ag [Presence] in Respiratory specimen by Rapid [id number] 14:42:10 Test Item Value Reference Range Interpretation Comments SARS-CoV - 2 (test code = SARS-CoV - negative 2) [facility] Ag [Presence] in Respiratory specimen by Rapid [id number] 14:42:10 Test Item Value Reference Range Interpretation Comments SARS-CoV - 2 (test code = SARS-CoV - negative 2) [facility]OVID[facility]19) Ag [Presence] in Respiratory specimen by Rapid [id number] 14:42:10 Test Item Value Reference Range Interpretation Comments SARS-CoV - 2 (test code = SARS-CoV - negative 2) [facility]OVID[facility]19) Ag [Presence] in Respiratory specimen by Rapid [id number] 14:42:10 Test Item Value Reference Range Interpretation Comments SARS-CoV - 2 (test code = SARS-CoV - negative 2) [facility]OVID[facility]19) Ag [Presence] in Respiratory specimen by Rapid [id number] 14:42:10 Test Item Value Reference Range Interpretation Comments SARS-CoV - 2 (test code = SARS-CoV - negative 2) [facility]OVID[facility]19) Ag [Presence] in Respiratory specimen by Rapid [id number] 14:42:10 Test Item Value Reference Range Interpretation Comments SARS-CoV - 2 (test code = SARS-CoV - negative 2) [facility] ([facility]OVID[facility]19) Ag [Presence] in Respiratory specimen by Rapid womrvbxgyvh1623-19-94 14:42:10 Test Item Value Reference Range Interpretation Comments SARS-CoV - 2 (test code = SARS-CoV - negative 2) [facility]OVID[facility]19) Ag [Presence] in Respiratory specimen by Rapid [id number] 20:30:00 Test Item Value Reference Range Interpretation Comments SARS-CoV - 2 (test code = SARS-CoV - positive 2) [facility]OVID[facility]19) Ag [Presence] in Respiratory specimen by Rapid bcnqvywtfed9278-09-17 20:30:00 Test Item Value Reference Range Interpretation Comments SARS-CoV - 2 (test code = SARS-CoV - positive 2) [facility]OVID[facility]19) Ag [Presence] in Respiratory specimen by Rapid [id number] 20:30:00 Test Item Value Reference Range Interpretation Comments SARS-CoV - 2 (test code = SARS-CoV - positive 2) [facility]OVID[facility]19) Ag [Presence] in Respiratory specimen by Rapid [id number] 20:30:00 Test Item Value Reference Range Interpretation Comments SARS-CoV - 2 (test code = SARS-CoV - positive 2) [facility]19) Ag [Presence] in Respiratory specimen by Rapid [id number] 20:30:00 Test Item Value Reference Range Interpretation Comments SARS-CoV - 2 (test code = SARS-CoV - positive 2) [facility]OVID[facility]19) Ag [Presence] in Respiratory specimen by Rapid [id number] 20:30:00 Test Item Value Reference Range Interpretation Comments SARS-CoV - 2 (test code = SARS-CoV - positive 2) [facility]) Ag [Presence] in Respiratory specimen by Rapid [id number] 20:30:00 Test Item Value Reference Range Interpretation Comments SARS-CoV - 2 (test code = SARS-CoV - positive 2) [facility] W Auto Differential panel - [id number] 00:00:00 Test Item Value Reference Range Interpretation Comments Leukocytes [#/volume] in Blood 11.4 x10e3/uL 3.4-10.8 H by Automated count (test code = 6690-2) Erythrocytes [#/volume] in 4.48 x10e6/uL 3.77-5.28 Blood by Automated count (test code = 789-8) Hemoglobin [Mass/volume] in 14.3 g/dL 11.1-15.9 Blood (test code = 718-7) Hematocrit [Volume Fraction] of 40.1 % 34.0-46.6 Blood by Automated count (test code = 4544-3) MCV [Entitic volume] by 90 fL 79-97 Automated count (test code = 787-2) MCH [Entitic mass] by Automated 31.9 pg 26.6-33.0 count (test code = 785-6) MCHC [Mass/volume] by Automated 35.7 g/dL 31.5-35.7 count (test code = 786-4) Erythrocyte distribution width 13.0 % 11.7-15.4 [Ratio] by Automated count (test code = 788-0) Platelets [#/volume] in Blood 318 x10e3/uL 150-450 by Automated count (test code = 777-3) Neutrophils/100 leukocytes in 59 % not estab. Blood by Automated count (test code = 770-8) Lymphocytes/100 leukocytes in 31 % not estab. Blood by Automated count (test code = 736-9) Monocytes/100 leukocytes in 7 % not estab. Blood by Automated count (test code = 5905-5) Eosinophils/100 leukocytes in 1 % not estab. Blood by Automated count (test code = 713-8) Basophils/100 leukocytes in 1 % not estab. Blood by Automated count (test code = 706-2) immature cells (test code = maintenance worker swimming pool immature cells) Neutrophils [#/volume] in Blood 6.8 x10e3/uL 1.4-7.0 by Automated count (test code = 751-8) Lymphocytes [#/volume] in Blood 3.5 x10e3/uL 0.7-3.1 H by Automated count (test code = 731-0) Monocytes [#/volume] in Blood 0.8 x10e3/uL 0.1-0.9 by Automated count (test code = 742-7) Eosinophils [#/volume] in Blood 0.2 x10e3/uL 0.0-0.4 by Automated count (test code = 711-2) Basophils [#/volume] in Blood 0.1 x10e3/uL 0.0-0.2 by Automated count (test code = 704-7) Immature granulocytes/100 1 % not estab. leukocytes in Blood by Automated count (test code = 07195-3) Immature granulocytes 0.1 x10e3/uL 0.0-0.1 [#/volume] in Blood by Automated count (test code = 12151-2) Nucleated erythrocytes/100 maintenance worker swimming pool leukocytes [Ratio] in Blood by Automated count (test code = 78507-9) Morphology [Interpretation] in maintenance worker swimming pool Blood Narrative (test code = 41632-0) [facility] [id number] 18:34:00 Test Item Value Reference Range Interpretation Comments cologuard result reportable (test negative negative code = cologuard result reportable) [facility], LB + [id number] 00:00:00 Test Item Value Reference Range Interpretation Comments HPV type-detect 3.0 by next gen not detected sequencing (reflex to HPV-16 risk assessment status) (test code = HPV type-detect 3.0 by next gen sequencing (reflex to HPV-16 risk assessment status)) liquid Pap test (test code = normal liquid Pap test) [facility], + [id number] 00:00:00 Test Item Value Reference Range Interpretation Comments HPV type-detect 3.0 by next gen not detected sequencing (reflex to HPV-16 risk assessment status) (test code = HPV type-detect 3.0 by next gen sequencing (reflex to HPV-16 risk assessment status)) liquid Pap test (test code = normal liquid Pap test) [facility] Reflex Culture panel - Urine 2021-03-31 00:00:00 Test Item Value Reference Range Interpretation Comments Specific gravity of Urine (test 1.016 1.005-1.030 code = 2965-2) pH of Urine by Test strip (test 5.5 5.0-7.5 code = 5803-2) Color of Urine (test code = yellow yellow 5778-6) Appearance of Urine (test code = clear clear 5767-9) Leukocyte esterase [Presence] in negative negative Urine by Test strip (test code = 5799-2) Protein [Presence] in Urine by negative negative/trace Test strip (test code = 16372-4) Glucose [Presence] in Urine (test negative negative code = 2349-9) Ketones [Presence] in Urine by negative negative Test strip (test code = 2514-8) Hemoglobin [Presence] in Urine by negative negative Test strip (test code = 5794-3) Bilirubin.total [Presence] in negative negative Urine by Test strip (test code = 5770-3) Urobilinogen [Mass/volume] in 0.2 mg/dL 0.2-1.0 Urine by Test strip (test code = 17345-0) Nitrite [Presence] in Urine by negative negative Test strip (test code = 5802-4) Microscopic observation see below: [Identifier] in Urine sediment by Light microscopy (test code = 16314-3) Leukocytes [#/area] in Urine none seen 0-5 sediment by Microscopy high power field (test code = 5821-4) Erythrocytes [#/area] in Urine none seen 0-2 sediment by Microscopy high power field (test code = 54980-4) Epithelial cells [#/area] in Urine none seen 0-10 sediment by Microscopy high power field (test code = 5787-7) Epithelial cells.renal [#/area] in maintenance worker swimming pool Urine sediment by Microscopy high power field (test code = 34447-0) Casts [Presence] in Urine sediment none seen none seen by Light microscopy (test code = 17500-3) Casts [Type] in Urine sediment by maintenance worker swimming pool Light microscopy (test code = 51843-2) Unidentified crystals [Presence] maintenance worker swimming pool in Urine sediment by Light microscopy (test code = 5783-6) Crystals [type] in Urine sediment maintenance worker swimming pool by Light microscopy (test code = 5782-8) Mucus [Presence] in Urine sediment maintenance worker swimming pool by Light microscopy (test code = 8247-9) Bacteria [#/area] in Urine none seen none seen/few sediment by Microscopy high power field (test code = 5769-5) Yeast [#/area] in Urine sediment maintenance worker swimming pool by Microscopy high power field (test code = 5822-2) Trichomonas vaginalis [Presence] maintenance worker swimming pool in Urine sediment by Light microscopy (test code = 5813-1) Urine sediment comments by Light maintenance worker swimming pool microscopy Narrative (test code = 90812-5) urinalysis reflex (test code = comment urinalysis reflex) [facility] [id number] 00:00:00 Test Item Value Reference Range Interpretation Comments request problem (test code = request tnp problem) [facility]
[2022-06-09] MEDS ORDERED: MORPHINE 4 MG/ML SYR ONE (06:30)
[2022-06-09] MEDS ORDERED: ONDANSETRON 4 MG/2 ML VIAL ONE (06:31)
[2022-06-09 06:42] LABS: Absolute Lymphocytes (CBC) 3.6 K/uL (0.7-4.9); Hematocrit 37.6 % (36.0-45.0); Lymphocytes % 23.6 % (15.3-44.8); MCV 90.1 fL (80-100); MPV 7.8 fL (7.6-11.3); RBC Red Blood Cell Count 4.17 M/uL (3.86-4.86)
[2022-06-09 06:45] LABS: Protime INR 0.97
[2022-06-09 07:27] LABS: Potassium 4.5 mmol/L (3.5-5.1); Troponin High Sensitivity 16.8 pg/mL (<58.9)
--- NOTE | 2022-06-09 07:27 | RAD REPORT ---
EXAM DESCRIPTION: RAD - Chest Single View - 06/09/2022 6:51 am CLINICAL HISTORY: pain to neck and shoulder Chest pain. COMPARISON: No comparisons FINDINGS: Portable technique limits examination quality. The lungs are grossly clear. The heart is normal in size. No displaced fractures. IMPRESSION: No acute intrathoracic process suspected.
--- NOTE | 2022-06-09 08:10 | RAD REPORT ---
EXAM DESCRIPTION: CT - Head Brain Wo Cont - 06/09/2022 8:05 am CLINICAL HISTORY: Chest pain Headache COMPARISON: No comparisons TECHNIQUE: All CT scans are performed using dose optimization technique as appropriate and may inclu de automated exposure control or mA/KV adjustment according to patient size. FINDINGS: No intracranial hemorrhage, hydrocephalus or extra-axial fluid collection.No areas of brai n edema or evidence of midline shift. The paranasal sinuses and mastoids are clear. The calvarium is intact. IMPRESSION: No acute intracranial abnormality.
--- NOTE | 2022-06-09 08:11 | RAD REPORT ---
EXAM DESCRIPTION: CT - Head angio - 06/09/2022 8:03 am CLINICAL HISTORY: Headache, new or worsening Headache, drowsiness COMPARISON: Head Brain Wo Cont dated 06/09/2022 TECHNIQUE: CT angiography of the head was performed with MIPs. All CT scans are performed using dose optimization technique as appropriate and may include automated exposure control or mA/KV adjustment according to patient size. FINDINGS: No evidence of aneurysm is detected. No flow-limiting stenosis or vascular malformation id entified. Antegrade flow is seen in the vertebral arteries. The vertebral arteries are codominant. The visualized dural venous sinuses are patent. IMPRESSION: No significant flow abnormality is detected.
--- NOTE | 2022-06-09 08:13 | RAD REPORT ---
EXAM DESCRIPTION: CT - Neck Angio - 06/09/2022 8:03 am CLINICAL HISTORY: neck pain, sudden onset, dizzy Neck pain, headache, drowsiness COMPARISON: No comparisons TECHNIQUE: CT angiography of the neck vessels was performed with MIPs. All CT scans are performed using dose optimization technique as appropriate and may include automated exposure control or mA/KV adjustment according to patient size. FINDINGS: A left aortic arch is identified with normal three vessel configuration of the great vesse ls. No significant flow abnormality is seen of the common carotid bilaterally. No significant stenosis is identified involving the cervical segments of both internal carotid arteri es. Normal flow is seen within both vertebral arteries. IMPRESSION: No significant flow abnormality of the neck vessels is identified.
--- NOTE | 2022-06-09 08:14 | RAD REPORT ---
EXAM DESCRIPTION: CT - Thorax W/ Con CLINICAL HISTORY: Chest pain Chest wall pain COMPARISON: No comparisons FINDINGS: The lungs are clear. No pleural thickening or pleural effusion. No pneumothorax. No axillary, mediastinal or hilar adenopathy. No concerning bony finding. No gross upper abdominal finding. All CT scans are performed using dose optimization technique as appropriate and may include automated exposure control or mA/KV adjustment according to patient size. IMPRESSION: Negative study.
--- NOTE | 2022-06-09 08:40 | EDPHYS ---
Physician Documentation [facility] Name: Flavia Del Castillo Age: 51 yrs Sex: Female : 1970 Arrival Date: 06/09/2022 Time: 05:51 Bed 7 Private MD: TIFFANIE Physician Zane Mann HPI: 06/09 07:07 This 51 yrs old Female presents to ER via Ambulatory with complaints of Neck rn and Upper Back Pain. 07:07 The patient or guardian complains of pain, that is acute. The symptoms are located on rn the scalp and neck. Onset: The symptoms/episode began/occurred just prior to arrival. The pain radiates to the right arm and left arm. Modifying factors: The symptoms are alleviated by remaining still, the symptoms are aggravated by movement. Severity of symptoms: At their worst the symptoms were moderate, in the emergency department the symptoms are unchanged. The patient has not experienced similar symptoms in the past. Reports out dancing last night, felt like was ok, later started with neck pain, radiates to both shoulders, denies chest pain or sob. No trauma. Hurts to turn head and touch neck.. BUSINESS PROCESS ARCHITECT: 06:16 LMP N/A - bb Historical: - Allergies: 06:16 No Known Allergies; bb - Home Meds: 06:16 gabapentin oral [Active]; monthly allergy shots [Active]; atorvastatin oral [Active]; bb cetirizine oral [Active]; Famotidine Oral [Active]; Hydroxyzine Oral [Active]; - Immunization history:: Client reports receiving the 2nd dose of the Covid vaccine, Moderna x 3. - Social history:: Smoking status: Patient denies any tobacco usage or history of. - Family history:: not pertinent. - Hospitalizations: : No recent hospitalization is reported. ROS: 07:07 Constitutional: Negative for fever, chills, and weight loss, Eyes: Negative for injury, rn pain, redness, and discharge, Neck: + neck pain Cardiovascular: Negative for chest pain, palpitations, and edema, Respiratory: Negative for shortness of breath, cough, wheezing, and pleuritic chest pain, Abdomen/GI: Negative for abdominal pain, nausea, vomiting, diarrhea, and constipation, Back: Negative for injury and pain, MS/Extremity: Negative for injury and deformity, Skin: Negative for injury, rash, and discoloration, Neuro: Negative for headache, weakness, numbness, tingling, and seizure. Exam: 07:07 Constitutional: This is a well developed, well nourished patient who is awake, appears rn uncomfortable Head/Face: Normocephalic, atraumatic. Eyes: Pupils equal round and reactive to light, extra-ocular motions intact. Lids and lashes normal. Conjunctiva and sclera are non-icteric and not injected. Cornea within normal limits. Periorbital areas with no swelling, redness, or edema. Neck: No crepitus or swelling. + tenderness bilateral sides of neck without masses Cardiovascular: Regular rate and rhythm. No pulse deficits. Respiratory: No increased work of breathing, no retractions or nasal flaring. Abdomen/GI: Soft, non-tender Skin: Warm, dry with normal turgor. Normal color with no rashes, no lesions, and no evidence of cellulitis. MS/ Extremity: Pulses equal, no cyanosis. Neurovascular intact. Full, normal range of motion. Equal circumference. Neuro: Awake and alert, GCS 15, oriented to person, place, time, and situation. Cranial nerves II-XII grossly intact. Motor strength 5/5 in all extremities. Sensory grossly intact. Cerebellar exam normal. Normal gait. 08:36 ECG was reviewed by the Attending Physician. [facility] Vital Signs: 06:11 BP 169 / 83; Pulse 82; Resp 16 S; Temp 98.4(O); Pulse Ox 98% on R/A; Weight 82.55 kg bb (R); Height 5 ft. 2 in. (157.48 cm) (R); Pain 10/10; 06:47 BP 161 / 88; Pulse 84; Resp 12 S; Pulse Ox 99% on R/A; as6 07:33 BP 163 / 84; Pulse 83; Resp 15; Pulse Ox 96% on R/A; kr3 08:45 BP 160 / 94; Pulse 71; Resp 16; Pulse Ox 100% on R/A; kr3 06:11 Body Mass Index 33.29 (82.55 kg, 157.48 cm) bb MDM: 06:00 Patient medically screened. rn 08:37 Differential diagnosis: C-Spine Fracture Cervical Disc Herniation cervical strain, daniela Degenerative Disc Disease Neck Contusion Osteoarthritis subluxation, torticollis. Data reviewed: vital signs, nurses notes, lab test result(s), EKG, radiologic studies, CT scan, plain films. Data interpreted: global compensation director: rate is 83 beats/min, rhythm is regular, Pulse oximetry: on room air is 96 %. Test interpretation: by ED physician or midlevel provider: ECG, plain radiologic studies. Counseling: I had a detailed discussion with the patient and/or guardian regarding: the historical points, exam findings, and any diagnostic results supporting the discharge/admit diagnosis, lab results, radiology results, the need for outpatient follow up, for definitive care, a family practitioner. 06/09 06:12 Order name: Basic Metabolic Panel; Complete Time: 08:33 rn 06/09 06:12 Order name: CBC with Diff; Complete Time: 08: rn 06/09 06:12 Order name: NT PRO-BNP; Complete Time: 08: rn 06/09 06:12 Order name: PT-INR; Complete Time: 08: rn 06/09 06:12 Order name: Troponin HS; Complete Time: 08: rn 06/09 06:12 Order name: XRAY Chest (1 view); Complete Time: 08: rn 06/09 06:12 Order name: EKG; Complete Time: 06:13 rn 06/09 06:12 Order name: Cardiac monitoring; Complete Time: 06: rn 06/09 06:12 Order name: CT Neck Angio; Complete Time: 08:33 rn 06/09 07:42 Order name: CT Head Angio; Complete Time: 08:33 daniela 06/09 07:42 Order name: CT Chest W/ Con; Complete Time: 08:33 daniela 06/09 07:48 Order name: CT Head Brain wo Cont; Complete Time: 08:33 eb 06/09 06:12 Order name: EKG - Nurse/Tech; Complete Time: 06:47 rn 06/09 06:12 Order name: IV Saline Lock; Complete Time: : rn 06/09 06:12 Order name: Labs collected and sent; Complete Time: 06:33 rn 06/09 06:12 Order name: O2 Per Protocol; Complete Time: 06:33 rn 06/09 06:12 Order name: O2 Sat Monitoring; Complete Time: 06:33 rn EC:36 Rate is 78 beats/min. Rhythm is regular. QRS [place] is Normal. [place] interval is normal. QRS daniela interval is normal. QT interval is normal. No Q waves. T waves are Normal. No ST changes noted. Clinical impression: Normal ECG and No evidence of ischemia. Interpreted by me. Reviewed by me. Administered Medications: 06:33 Drug: morphine 4 mg Route: IVP; Infused Over: 4 mins; Site: left antecubital; as6 09:03 Follow up: Response: No adverse reaction; RASS: Alert and Calm (0) kr3 06:33 Drug: Zofran (Ondansetron) 4 mg Route: IVP; Site: left antecubital; as6 Disposition Summary: 06/09/22 08:39 Discharge Ordered Location: Home daniela Problem: new daniela Symptoms: have improved daniela Condition: Stable daniela Diagnosis - Strain of muscle, fascia and tendon at neck level, initial encounter daniela - Strain of muscle and tendon of back wall of thorax daniela - Strain of muscle and tendon of front wall of thorax daniela Followup: daniela - With: Private Physician - When: 2 - 3 days - Reason: Recheck today's complaints, Continuance of care, Re-evaluation by your physician Discharge Instructions: - Discharge Summary Sheet daniela - Muscle Strain daniela - Neck Contusion daniela - Muscle Strain, Nies-wr-Rove daniela - Neck Contusion, [id number] daniela Forms: - Medication Reconciliation Form daniela - Thank You Letter daniela - Antibiotic Education daniela - Prescription Opioid Use daniela Prescriptions: - Diclofenac Sodium 75 mg Oral tablet,delayed release (DR/EC) - take 1 tablet by ORAL route 2 times per day; 20 tablet; Refills: 0, Product daniela Selection Permitted - Medrol (Girish) 4 mg Oral Tablets, Dose Pack - take 1 tablet by ORAL route as directed - follow package instructions; 1 daniela packet; Refills: 0, Product Selection Permitted - Cyclobenzaprine 5 mg Oral Tablet - take 1 tablet by ORAL route 3 times per day As needed; 15 tablet; Refills: 0, daniela Product Selection Permitted - Tylenol-Codeine #3 300 mg-30 mg Oral - take 1 tablet by ORAL route every 4 hours; 20 tablet; Refills: 0, Product daniela Selection Permitted Signatures: Dispatcher [employer] Zane Nunez MD MD cha Ballard, Brenda RN Lefty Uriostegui MD MD rn Slawson, Ashby, RN RN as6 Brittany Pressley RN kr3
--- NOTE | 2022-06-09 08:40 | ER ---
Nurse's Notes [facility] Name: Flavia Del Castillo Age: 51 yrs Sex: Female : 1970 Arrival Date: 06/09/2022 Time: 05:51 Bed 7 Private MD: Diagnosis: Strain of muscle, fascia and tendon at neck level, initial encounter;Strain of muscle and tendon of back wall of thorax;Strain of muscle and tendon of front wall of thorax Presentation: 06/09 06:11 Chief complaint: Patient states: she was at a birthday green party [employer] and when bb she got ready to leave she started having severe neck pain radiating down both arms she took some gabapentin but it is not helping. Coronavirus screen: At this time, the client does not indicate any symptoms associated with coronavirus-19. Ebola Screen: No symptoms or risks identified at this time. Initial Sepsis Screen: Does the patient meet any 2 criteria? No. Patient's initial sepsis screen is negative. Does the patient have a suspected source of infection? No. Patient's initial sepsis screen is negative. Risk Assessment: Do you want to hurt yourself or someone else? Patient reports no desire to harm self or others. Onset of symptoms was June 09, 2022. 06:11 Method Of Arrival: Ambulatory bb 06:11 Acuity: MACARIO 3 bb APN: 06:16 LMP N/A - bb Historical: - Allergies: 06:16 No Known Allergies; bb - Home Meds: 06:16 gabapentin oral [Active]; monthly allergy shots [Active]; atorvastatin oral [Active]; bb cetirizine oral [Active]; Famotidine Oral [Active]; Hydroxyzine Oral [Active]; - Immunization history:: Client reports receiving the 2nd dose of the Covid vaccine, Moderna x 3. - Social history:: Smoking status: Patient denies any tobacco usage or history of. - Family history:: not pertinent. - Hospitalizations: : No recent hospitalization is reported. Screenin:35 Abuse screen: Denies threats or abuse. Denies injuries from another. Nutritional as6 screening: No deficits noted. Tuberculosis screening: No symptoms or risk factors identified. Fall Risk None identified. Assessment: 06:34 General: Appears uncomfortable, Behavior is calm, cooperative. Pain: Complains of pain as6 in chest, right arm and left arm. Neuro: Level of Consciousness is awake, alert, Reports headache. Cardiovascular: Reports chest pain, Denies shortness of breath. Respiratory: Respiratory effort is even, unlabored. 06:48 General: Behavior is anxious. as6 07:33 Reassessment: No changes from previously documented assessment. Patient and/or family kr3 updated on plan of care and expected duration. Pain level reassessed. Patient is alert, oriented x 3, equal unlabored respirations, skin warm/dry/pink. feels anxious. Dr. Mann informed. Vital Signs: 06:11 BP 169 / 83; Pulse 82; Resp 16 S; Temp 98.4(O); Pulse Ox 98% on R/A; Weight 82.55 kg bb (R); Height 5 ft. 2 in. (157.48 cm) (R); Pain 10/10; 06:47 BP 161 / 88; Pulse 84; Resp 12 S; Pulse Ox 99% on R/A; as6 07:33 BP 163 / 84; Pulse 83; Resp 15; Pulse Ox 96% on R/A; kr3 08:45 BP 160 / 94; Pulse 71; Resp 16; Pulse Ox 100% on R/A; kr3 06:11 Body Mass Index 33.29 (82.55 kg, 157.48 cm) ED Course: 05:51 Patient arrived in ED. ja2 06:00 Lefty Villa MD is Attending Physician. rn 06:16 Triage completed. bb 06:16 Arm band placed on Patient placed in an exam room, on a stretcher, on pulse oximetry. bb Family accompanied patient. 06:18 Rosalee Goode, RN is Primary Nurse. ha1 06:25 Inserted saline lock: 18 gauge in left antecubital area, using aseptic technique. Blood as6 collected. 06:35 Bed in low position. Call light in reach. Side rails up X2. as6 06:53 XRAY Chest (1 view) In Process Unspecified. EDMS 07:21 Attending Physician role handed off by Lefty Villa MD daniela 07:21 Zane Mann MD is Attending Physician. daniela 08:04 CT Neck Angio In Process Unspecified. EDMS 08:05 CT Head Angio In Process Unspecified. EDMS 08:05 CT Chest W/ Con In Process Unspecified. EDMS 08:06 CT Head Brain wo Cont In Process Unspecified. EDMS 09:02 No provider procedures requiring assistance completed. IV discontinued, intact, kr3 bleeding controlled, No redness/swelling at site. Pressure dressing applied. Administered Medications: 06:33 Drug: morphine 4 mg Route: IVP; Infused Over: 4 mins; Site: left antecubital; as6 09:03 Follow up: Response: No adverse reaction; RASS: Alert and Calm (0) kr3 06:33 Drug: Zofran (Ondansetron) 4 mg Route: IVP; Site: left antecubital; as6 Medication: 07:34 VIS not applicable for this client. kr3 Outcome: 08:39 Discharge ordered by . daniela 08:58 Patient left the ED. ll1 09:02 Discharged to home ambulatory. kr3 09:02 Condition: stable 09:02 Discharge instructions given to patient, family, Instructed on discharge instructions, follow up and referral plans. medication usage, Demonstrated understanding of instructions, follow-up care, medications, Prescriptions given X 4. Signatures: Dispatcher [employer] EDAR Zane Mann MD MD cha Ballard, Brenda, RN RN Lefty Lin MD MD rn Lewis, Lynsay, RN RN ll1 Nirmala Hodges Ashby RN RN as6 Rosalee Goode, MAGALIS RN ha1 Brittany Pressley, RN RN kr3
[2022-06-09 09:39] VITALS: TEMP 98.4
[2022-06-09 09:50] VITALS: BP 163/84; O2SAT 96
--- NOTE | 2022-06-10 05:39 | EKG ---
Test Date: 2022-06-09 Test Time: 06:47:46 Tractor Operator Battery: MEASUREMENT RESULTS: Intervals: Rate: 78 AK: 150 QRSD: 88 QT: 402 QTc: 458 [place]: P: 31 AK: 150 QRS: 10 T: 51 INTERPRETIVE STATEMENTS: Normal sinus rhythm Normal ECG No previous ECG available for comparison Electronically Signed On 06-10-22 05:38:02 CDT by Daniel Sarah
== END 2022-06-09 08:58 | disposition home or self-care (01) ==
LOC: ER 05:48
DX: S16.1XXA Strain of muscle, fascia and tendon at neck level, initial encounter (principal); S29.012A Strain of muscle and tendon of back wall of thorax, initial encounter; S29.011A Strain of muscle and tendon of front wall of thorax, initial encounter
CPT/HCPCS: 93005; 85025; 80048; 36415; 85610; 84484; 83880; 70450; 71260; 70496; 70498; 71045; 96375; 96374; 99284; Q9967; J2405